=== PATIENT | female | born 1965 | race Caucasian/White ===

== ENCOUNTER 2017-07-31 03:42 | Inpatient (IN) | payer MEDICAID ==
[~2017-07-31] VITALS: Ht 152.4 cm; Wt 76.4 kg
[~2017-07-31 03:42] MED LIST: ADVAIR 250/501 DISK INH; ALBUTEROL0.63 MG/3 INH; ASPIRIN EC81 M1 PO; BUSPAR10 MG PO; CALCIUM 250+D T1 TAB PO; FISH OIL 500 MG1 CAP PO; FLUTICASONE PRO16 GM NASAL; GLUCOPHAGE1000 MG PO; HUMULIN R100 U/ML SC; HYDROCODON-ACE1 EAC6 PO; KLONOPIN1 MG PO; LANOXIN250 MCG PO; LANTUS INSULIN10 ML SC; LATUDA40 MG PO; MESTINON60 MG PO; NEURONTIN 300300 MG PO; NITROSTAT0.4 MG SL; PRAVASTATIN SOD10 MG PO; PRINIVIL20 MG PO; SINEQUAN100 MG PO; SINGULAIR10 MG PO; SUMATRIPTAN SUC25 MG PO; TOPICORT TOPICAL; ULTRAM50 MG PO; VITAMIN E1000 UNI1 PO; WELLBUTRIN75 MG PO
[2017-07-31 04:29] LABS: BASOPHILS 0.3 % (0-2); EOSINOPHILS 6.9 % (0-7); HEMATOCRIT 31.7 % (36.0-48.0); HEMOGLOBIN 10.6 g/dL (12-16); IMMATURE GRANULOCYTES 0.2 % (0-5); LYMPHOCYTES 21.8 % (15-50); MCH 30.9 pg (26.0-34.0); MCHC 33.4 g/dL (31.0-37.0); MCV 92.4 fL (80.0-100.0); MEAN PLATELET VOLUME 9.2 fL (7.4-10.4); MONOCYTES 7.2 % (2-11); NEUTROPHILS 63.6 % (40-80); PLATELET COUNT 270 10x3/uL (130-400); RBC 3.43 10x6/uL (4.00-5.40); RDW 12.5 % (11.5-14.5); WBC 8.9 10x3/uL (4.8-10.8)
[2017-07-31 04:45] LABS: ALBUMIN 3.7 g/dL (3.4-5.0); BILIRUBIN - TOTAL 0.32 mg/dL (0.2-1.3); CALCIUM 9.7 mg/dL (8.5-10.1); CARBON DIOXIDE 21.6 mmol/L (21.0-32.0); CREATININE - SERUM 11.7 mg/dL (0.6-1.3); POTASSIUM - SERUM 4.6 mmol/L (3.5-5.1); PROTEIN - SERUM 7.5 g/dL (6.4-8.2)
--- NOTE | 2017-07-31 07:24 | NUR ---
Pt arrived via bed from ER after receiving report. Physical assessment by admission discharge rn nurse. Meds reviewed with pt and pts spouse, updated. Pt has had no home meds today. Pt has 20g peripheral IV to rt wrist, saline locked currently. Pt started vomiting during med reconciliation. NO c/o pain currently. ID band on left wrist.
--- NOTE | 2017-07-31 07:30 | NUR ---
Complete bed bath and linen change performed. Pt has pink, blanchable area to coccyx, no open areas. Pt is incontinent of bladder, EXECUTIVE VICE PRESIDENT AND CHIEF OPERATING OFFICER will provide briefs from supply. Call light in reach. Pt states had no nausea before emesis, states "I just started throwing up". Emesis thin, white to pinkish brown. Approx amt 400ml.
--- NOTE | 2017-07-31 08:42 | NUR ---
Pt moved to 2121 per community recreation coordinator. Report given to that RN.
[2017-07-31 11:09] LABS: BASOPHILS 0.2 % (0-2); EOSINOPHILS 1.1 % (0-7); HEMATOCRIT 30.3 % (36.0-48.0); HEMOGLOBIN 10.3 g/dL (12-16); IMMATURE GRANULOCYTES 0.2 % (0-5); LYMPHOCYTES 9.1 % (15-50); MCH 31.3 pg (26.0-34.0); MCV 92.1 fL (80.0-100.0); MEAN PLATELET VOLUME 9.4 fL (7.4-10.4); MONOCYTES 0.9 % (2-11); NEUTROPHILS 88.5 % (40-80); RBC 3.29 10x6/uL (4.00-5.40); RDW 12.4 % (11.5-14.5)
[2017-07-31 11:12] LABS: COMPLEMENT C4 25.8 mg/dL (17.4-52.2)
[2017-07-31 11:20] LABS: PLATELET COUNT 196 10x3/uL (130-400); WBC 5.4 10x3/uL (4.8-10.8)
[2017-07-31 11:33] LABS: ALBUMIN 3.7 g/dL (3.4-5.0); ANION GAP 26.6 mmol/L (8-16); BILIRUBIN - TOTAL 0.32 mg/dL (0.2-1.3); CALCIUM 9.6 mg/dL (8.5-10.1); CHOL - HDL RATIO 4.5 ratio (2.3-4.1); CREATININE - SERUM 11.1 mg/dL (0.6-1.3); LDL-HDL RATIO 1.7 ratio (1.5-3.5); MAGNESIUM - SERUM 1.5 mg/dL (1.8-2.4); PHOSPHOROUS 5.6 mg/dL (2.5-4.9); PROTEIN - SERUM 7.5 g/dL (6.4-8.2)
[2017-07-31 11:34] LABS: POTASSIUM - SERUM 5.6 mmol/L (3.5-5.1)
[2017-07-31 14:00] VITALS: BP 138/72; Ht 152.4 cm; Wt 76.4 kg
--- NOTE | 2017-07-31 15:00 | NUR ---
ALERT AND ORIENTED X4. RESTING IN BED. MAZARIEGOS PLACED. URINE CLOUDY YELLOW. UA TAKEN TO LAB ORDERED. REFUSE SCDs. UP TO BATHROOM WITH ASSISTANCE. FAMILY AT BEDSIDE. DENIES ANY NEEDS. SINUS RHTHYM ON TELEMETRY. 10mL OF SALINE INFLATED IN BALLOON. CONTINUE PLAN OF CARE. BED LOCKED AND LOW. CALL LIGHT IN REACH. TWO SIDERAILS UP.
[2017-07-31 19:13] LABS: APPEARANCE CLEAR (CLEAR); BILIRUBIN NEGATIVE (NEGATIVE); COLOR YELLOW (YELLOW); GLUCOSE 50 mg/dL (NEGATIVE); KETONE NEGATIVE (NEGATIVE); LEUKOCYTE ESTERASE NEGATIVE (NEGATIVE); NITRITE NEGATIVE (NEGATIVE); PROTEIN NEGATIVE (NEGATIVE); UROBILINOGEN NORMAL (NORMAL)
--- NOTE | 2017-07-31 19:44 | NUR ---
ASSESSMENT COMPLETE, A&O. IV TO RIGHT HAND WITH NS INFUSING AT 100 CC/HR. SITE CLEAN AND DRY. MAZARIEGOS DRAINING TO GRAVITY. AT BED SIDE, PT DENIES PAIN AT THIS TIME, SHERBERT GIVEN AT PT REQUEST.
[2017-07-31 20:00] VITALS: BP 139/86
--- NOTE | 2017-07-31 20:00 | NUR ---
VITALS OBTAINED BY NURSE, VITALS SIGNS STABLE.
--- NOTE | 2017-07-31 20:57 | NUR ---
HS MEDS GIVEN WITH FRESH ICE WATER, PT DENIES PAIN OR NEEDS, BED LOW, CL IN REACH.
--- NOTE | 2017-07-31 21:49 | NUR ---
VITALS OBTAIN BY NURSE, VITAL SIGNS STABLE.
--- NOTE | 2017-07-31 21:57 | NUR ---
BED SIDE COMMODE TAKEN TO ROOM FOR PTS CONVIENCE.
[2017-08-01] VITALS: BP 106/55
--- NOTE | 2017-08-01 00:19 | NUR ---
DAIRY POWDER MIXER OPERATOR AT BEDSIDE TO OBTAIN VITALS, CALL LIGHT IN REACH. WILL CONTINUE TO MONITOR.
--- NOTE | 2017-08-01 03:23 | NUR ---
RESTING WITH EYES CLOSED, RESPERATIONS EVEN, NO S/S DISTRESS NOTED.
[2017-08-01 04:00] VITALS: BP 144/62
[2017-08-01 06:16] LABS: BASOPHILS 0 % (0-2); EOSINOPHILS 0.2 % (0-7); IMMATURE GRANULOCYTES 0.2 % (0-5); LYMPHOCYTES 11.7 % (15-50); MCH 30.9 pg (26.0-34.0); MCHC 34.8 g/dL (31.0-37.0); MEAN PLATELET VOLUME 9.4 fL (7.4-10.4); MONOCYTES 7.7 % (2-11); NEUTROPHILS 80.2 % (40-80); PLATELET COUNT 164 10x3/uL (130-400); WBC 5.3 10x3/uL (4.8-10.8)
[2017-08-01 06:17] LABS: HEMATOCRIT 23.3 % (36.0-48.0); HEMOGLOBIN 8.1 g/dL (12-16); MCV 88.9 fL (80.0-100.0); RBC 2.62 10x6/uL (4.00-5.40)
[2017-08-01 06:34] LABS: ALBUMIN 3.1 g/dL (3.4-5.0); BILIRUBIN - TOTAL 0.23 mg/dL (0.2-1.3); CALCIUM 7.8 mg/dL (8.5-10.1); PROTEIN - SERUM 6.3 g/dL (6.4-8.2)
[2017-08-01 06:35] LABS: ANION GAP 16.1 mmol/L (8-16); CARBON DIOXIDE 24.8 mmol/L (21.0-32.0); POTASSIUM - SERUM 3.9 mmol/L (3.5-5.1)
--- NOTE | 2017-08-01 07:15 | NUR ---
RESTING QUIETLY RESP UNLABORED NAD NOTED
--- NOTE | 2017-08-01 07:30 | NUR ---
ASSESSMENT COMPLETED.SLOW TO AWAKEN. AFTER PT WOKE UP, SHE IS ALERT, TELEMERTY SHOWS SR 69. O2 AT 5L/M PER NC IV RIGHT HAND WITH NS AT 100. KARY PLACED UNDER PT. MAZARIEGOS CATH PATENT TO BEDSIDE DRAINAGE. SR UP WITH CALL LIGHT IN REACH. WILL MONITOR
[2017-08-01 07:47] VITALS: BP 108/67
[2017-08-01 11:18] LABS: ANA REFLEX - DBL STRANDED DNA <1 IU/mL (0-9); ANA REFLEX - DIRECT Negative (Negative)
[2017-08-01 11:42] VITALS: BP 116/56
[2017-08-01 12:11] LABS: COMPLEMENT C4 21.2 mg/dL (17.4-52.2)
[2017-08-01 13:22] LABS: ERYTHROCYTE SEDIMENTATION RATE 32 mm/hr (0-30)
[2017-08-01 15:15] VITALS: BP 108/55
--- NOTE | 2017-08-01 17:50 | NUR ---
STARTED SECOND UNIT OF PRBC. VS ARE WNL PT DENIES ANY S/S TRANSFUSION REACTION. PRBC INFUSING TO R HAND NO PROBLEMS.
--- NOTE | 2017-08-01 17:56 | NUR ---
SECOND UNIT OF BLOOD HUNG BY ABRAN CASTORENA RN. 1ST UNIT OF BLEED GIVEN WITH ANY ADVERSE SYMPTOMS.DENIES ANY NEEDS. CALL LIGHT IN REACH
[2017-08-01 20:55] VITALS: BP 121/50
[2017-08-02 04:00] VITALS: BP 115/60
[2017-08-02 05:28] LABS: BASOPHILS 0.2 % (0-2); EOSINOPHILS 1.1 % (0-7); IMMATURE GRANULOCYTES 0.2 % (0-5); LYMPHOCYTES 16.5 % (15-50); MCH 30.4 pg (26.0-34.0); MCHC 34.3 g/dL (31.0-37.0); MCV 88.7 fL (80.0-100.0); MEAN PLATELET VOLUME 9.7 fL (7.4-10.4); MONOCYTES 6.8 % (2-11); NEUTROPHILS 75.2 % (40-80); PLATELET COUNT 156 10x3/uL (130-400); RDW 13.1 % (11.5-14.5); WBC 6.3 10x3/uL (4.8-10.8)
[2017-08-02 05:45] LABS: HEMATOCRIT 30.6 % (36.0-48.0); HEMOGLOBIN 10.5 g/dL (12-16); RBC 3.45 10x6/uL (4.00-5.40)
[2017-08-02 05:50] LABS: ALBUMIN 3.2 g/dL (3.4-5.0); CALCIUM 7.7 mg/dL (8.5-10.1); CARBON DIOXIDE 25.6 mmol/L (21.0-32.0)
[2017-08-02 05:54] LABS: ANION GAP 13.4 mmol/L (8-16); CREATININE - SERUM 5.7 mg/dL (0.6-1.3)
[2017-08-02 06:29] LABS: BILIRUBIN - TOTAL 0.29 mg/dL (0.2-1.3); PROTEIN - SERUM 6.3 g/dL (6.4-8.2)
--- NOTE | 2017-08-02 07:25 | NUR ---
A SSESSMENT COMPLETED. ALERT AND ORIENTED. TELEMERTY SHOWS SR. O2 AT 2 L/M PRN. MAZARIEGOS CATH PATEN TO GRAVITY BAG. FAMILY AT BEDSIDE. DENIES ANY NEEDS
[2017-08-02 08:57] VITALS: BP 123/59
[2017-08-02 09:16] LABS: ANA REFLEX - DIRECT Negative (Negative)
[2017-08-02 11:17] LABS: SPE - A/G RATIO 1.3 (0.7-1.7); SPE - ALBUMIN 3.9 g/dL (2.9-4.4); SPE - ALPHA-1 GLOBULIN 0.2 g/dL (0.0-0.4); SPE - GAMMA GLOBULIN 0.9 g/dL (0.4-1.8); SPE - M-SPIKE Not Observed g/dL (Not Observed)
[2017-08-02 12:12] VITALS: BP 113/60
--- NOTE | 2017-08-02 12:59 | NUR ---
RD follow up note, Chart reviewed, visited with pt Pt reports good appetite. No n/v/c/d/chewing/swallowing problems. Physician noted on 08/02 "hyponatremia will liberilize diet". Meds: reviewed Diet: previously renal ADA, now ADA PO: 50-75% Labs: 08/02- BUN 71 Trending down, creat: 5.7, trending down. NA 08/02-143, 08/01-138, 07/31-135 08/02-K 3.0, 07/31-5.6 WTL 08/02-192 bed scale, 07/3168-753-pdalhsiw. No skin issues. Good appetite, fair intake, diet recently changed. Labs improving. No changes at this time. Plan: RD to continue to follow
--- NOTE | 2017-08-02 17:50 | NUR ---
UP TO BEDSIDE CHAIR. DENIES ANY NEEDS.
[2017-08-02 19:00] VITALS: BP 123/65
[2017-08-03] VITALS: BP 119/84
[2017-08-03 04:00] VITALS: BP 131/72
--- NOTE | 2017-08-03 05:15 | NUR ---
RESTING WELL THIS SHIFT WITHOUT C/O OR DISTRESS NOTED. NO NEEDS VOICED. RESP EVEN AND UNLABORED. CALL LIGHT WITHIN REACH. WILL CONT TO MONITOR.
[2017-08-03 05:23] LABS: BASOPHILS 0.2 % (0-2); EOSINOPHILS 2.2 % (0-7); HEMATOCRIT 30.5 % (36.0-48.0); HEMOGLOBIN 10.4 g/dL (12-16); IMMATURE GRANULOCYTES 0.2 % (0-5); LYMPHOCYTES 18.1 % (15-50); MCH 30.2 pg (26.0-34.0); MCHC 34.1 g/dL (31.0-37.0); MCV 88.7 fL (80.0-100.0); MEAN PLATELET VOLUME 10.1 fL (7.4-10.4); MONOCYTES 9.4 % (2-11); NEUTROPHILS 69.9 % (40-80); PLATELET COUNT 164 10x3/uL (130-400); RBC 3.44 10x6/uL (4.00-5.40); RDW 13.1 % (11.5-14.5); WBC 6.4 10x3/uL (4.8-10.8)
[2017-08-03 05:52] LABS: ALBUMIN 3.2 g/dL (3.4-5.0); BILIRUBIN - TOTAL 0.34 mg/dL (0.2-1.3); CALCIUM 7.7 mg/dL (8.5-10.1); CARBON DIOXIDE 25.8 mmol/L (21.0-32.0); PROTEIN - SERUM 6.4 g/dL (6.4-8.2)
[2017-08-03 06:00] LABS: CREATININE - SERUM 3.6 mg/dL (0.6-1.3)
[2017-08-03 06:01] LABS: POTASSIUM - SERUM 2.8 mmol/L (3.5-5.1)
--- NOTE | 2017-08-03 06:23 | NUR ---
PT K+ RESULTS CRITICALLY LOW. PT ON ELECTROLYTE PROTOCOL. KCL 20 MEQ PO GIVEN. PT TO RECEIVE 2 MORE DOSES Q2H. WILL REPORT TO ONCOMING NURSE. URINE COLLECTED AND SENT TO LAB AT THIS TIME.
[2017-08-03 06:40] LABS: APPEARANCE CLOUDY (CLEAR); BILIRUBIN NEGATIVE (NEGATIVE); COLOR STRAW (YELLOW); GLUCOSE 250 mg/dL (NEGATIVE); KETONE NEGATIVE (NEGATIVE); LEUKOCYTE ESTERASE 1+ (NEGATIVE); NITRITE POSITIVE (NEGATIVE); PROTEIN TRACE mg/dL (NEGATIVE); UROBILINOGEN NORMAL (NORMAL)
[2017-08-03 06:41] LABS: BACTERIA MANY /hpf (NONE SEEN); MUCUS <1+ /lpf (NONE SEEN); WHITE CELLS - URINE >50 /hpf (0-5)
[2017-08-03 06:51] LABS: CREATININE - URINE 72.9 mg/dL (30-125); PRO/CRE RATIO URINE 0.5 mg/g; PROTEIN - URINE 35.2 mg/dL (0.0-11.9)
--- NOTE | 2017-08-03 07:12 | NUR ---
AM ROUNDS- PT IN BED, WITH EYES CLOSED, RESP AND UNLABORED. RT WRIST IV SL AND PATENT. BED LOW AND WHEELS LOCKED, BEDSIDE RAILS X2, CALL LIGHT IN REACH, NAD NOTED, WILL CONTINUE TO MONITOR.
[2017-08-03 09:48] VITALS: BP 134/75
--- NOTE | 2017-08-03 09:58 | NUR ---
AM MEDS GIVEN AT THIS TIME PT CONCERN ABOUT IV. IV SITE ASSESSED, IV SITE LOOKS GOOD AND IS PATENT. PT REFUSED TO BE HOOKED UP TO IV FLUIDS AT THIS TIME. JUST FINISHED WITH SPONGE BATH, DENIES ANY NEEDS AT THIS TIME. AT BEDSIDE, NAD NOTED, WILL CONTINUE TO MONITOR.
--- NOTE | 2017-08-03 10:04 | NUR ---
PAULY ROJO RENAL MANAGER UTILIZATION REVIEW NOTIFIED THAT PT IS REFUSING TO HAVE IV FLUIDS RUNNING. PAULY ROJO STATED THAT IT WAS OK SINCE PT IS GETTING BETTER.
--- NOTE | 2017-08-03 11:29 | NUR ---
MAZARIEGOS CATHETER D/C AT THIS TIME, PER ORDER. REMOVED 10CC OF SALINE OUT OF BALLOON, TIP INTACT. PT TOLERATED PROCEDURE WELL. PRODUCTION SCHEDULER AT BEDSIDE TO DO VITAL SIGNS. PT DENIES ANY NEEDS AT THIS TIME. AT BEDSIDE, NAD NOTED, WILL CONTNUE TO MONITOR.
[2017-08-03 12:29] VITALS: BP 123/80
[2017-08-03 15:11] VITALS: BP 125/64
--- NOTE | 2017-08-03 16:49 | NUR ---
PT UP TO SIDE OF BED, FIXING TO EAT DINNER. DENIES ANY NEEDS AT THIS TIME. CALL LIGHT IN REACH, NAD NOTED, WILL CONTINUE TO MONITOR.
[2017-08-03 20:00] VITALS: BP 135/81
[2017-08-04] VITALS: BP 142/72
[2017-08-04 04:00] VITALS: BP 150/77
[2017-08-04 05:53] LABS: BASOPHILS 0.4 % (0-2); HEMATOCRIT 29.5 % (36.0-48.0); IMMATURE GRANULOCYTES 0.4 % (0-5); LYMPHOCYTES 25.1 % (15-50); MCH 30.4 pg (26.0-34.0); MCHC 33.9 g/dL (31.0-37.0); MCV 89.7 fL (80.0-100.0); MEAN PLATELET VOLUME 10.4 fL (7.4-10.4); MONOCYTES 8.1 % (2-11); PLATELET COUNT 152 10x3/uL (130-400); RBC 3.29 10x6/uL (4.00-5.40); WBC 5.3 10x3/uL (4.8-10.8)
[2017-08-04 06:21] LABS: ALBUMIN 3.3 g/dL (3.4-5.0); ANION GAP 12.4 mmol/L (8-16); BILIRUBIN - TOTAL 0.4 mg/dL (0.2-1.3); CALCIUM 8.2 mg/dL (8.5-10.1); CREATININE - SERUM 2.4 mg/dL (0.6-1.3); POTASSIUM - SERUM 3.4 mmol/L (3.5-5.1); PROTEIN - SERUM 6.4 g/dL (6.4-8.2)
--- NOTE | 2017-08-04 07:23 | NUR ---
AM ROUNDS- PT IN BED, WATCHING TV. RESP EVEN AND NONLABORED. RT WRIST IV INFUSING NS AT 100. BED LOW AND WHEELS LOCKED, BEDSIDE RAILS X2, PT DENIES ANY NEEDS AT THIS TIME. CALL LIGHT IN REACH, NAD NOTED, WILL CONTINUE TO MONITOR.
[2017-08-04 08:00] VITALS: BP 140/78
--- NOTE | 2017-08-04 08:49 | NUR ---
ADMINSTERED AM MEDS. PT UP TO SIDE OF BED, DENIES ANY NEEDS AT THIS TIME. CALL LIGHT IN REACH, NAD NOTED, WILL CONTINUE TO MONITOR.
--- NOTE | 2017-08-04 10:30 | NUR ---
PT GOT IN THE SHOWER AFTER THROWING UP IN HER BED. COMPLETE LINEN CHANGE DONE AT THIS TIME. AT BEDSIDE. PT WILL NOTIFY NURSE OR CUSTOMER SERVICE REP WHEN SHE IS OUT OF SHOWER TO BE HOOKED BACK UP TO TELEMETRY. NAD NOTED, WILL CONTINUE TO MONITOR.
--- NOTE | 2017-08-04 11:00 | NUR ---
40MEQ OF K GIVEN AT THIS TIME FOR LOW K OF 3.4. PT DENIES ANY NEEDS AT THIS TIME. CALL LIGHT IN REACH, NAD NOTED, WILL CONTINUE TO MONITOR.
[2017-08-04 12:00] VITALS: BP 128/69
[2017-08-04 16:00] VITALS: BP 137/69
[2017-08-04 19:00] VITALS: BP 150/76
--- NOTE | 2017-08-04 22:03 | NUR ---
INIITAL ROUNDS COMPLETED AT 1915 HRS. PT DENIED ANY DISCOMFORT. PT REFUSED IV FLUIDS AT THAT TIME. ASSESSMENT COMPLETED AT 2009 HRS. VSS . SR PER CM HR 79. IV TO R WRIST SL. LUNGS CTA. PT ALER AND ORIENTED TO PERSON, PLACE AND TIME. PM MED GIVEN. PT CURRENTLY WATCHING TV. WILL CONTINUE TO MONITOR.
--- NOTE | 2017-08-04 22:48 | NUR ---
PT VERY UPSET THREATENING TO LEAVE AMA. CRISTÓBAL SOME WOMAN CAME IN AND PUT HER HAD DOWN HER GOWN TO PLACE MONITOR BACK ON. INFORMED FROM Karen MAYEN RN THAT PT WAS READING ASYSTOLE ON MONITOR AND SHE CHECKED ON PT. PT STATED SHE CALLED HER . PT INSISTING SHE IS LEAVING IN AM. NO OFFICIAL ORDERS. WILL CONTINUE TO MONITOR.
--- NOTE | 2017-08-04 23:10 | NUR ---
HERE. SITUATION EXPLAINED TO . EMOTIONAL SUPPORT GIVEN. DISCUSSED MD NOTED TO PT AND SPOUSE. PT AGREED TO STAY UNTIL AM. WILL CONTINUE TO MONITOR.
--- NOTE | 2017-08-05 00:46 | NUR ---
PT RSTING WITH EYES CLOSED. RESP EVEN AND REGULAR. SR UP X2,CALL LIGHT WITHIN REACH.
[2017-08-05 01:06] VITALS: BP 142/73
--- NOTE | 2017-08-05 02:45 | NUR ---
PT RESTING WITH EYES CLOSED. RESP EVEN AND REGULAR. SR UP X2, CALL LIGHT WITHIN RAECH.
[2017-08-05 04:27] VITALS: BP 173/101
--- NOTE | 2017-08-05 04:51 | NUR ---
PT CONTINUES TO BE UPSET THAT SHE HAS NOT BEEN DC'S HOME ALREADY. SPOUSE AT BEDSIDE.
[2017-08-05 05:45] LABS: BASOPHILS 0.3 % (0-2); EOSINOPHILS 5.1 % (0-7); HEMATOCRIT 30.4 % (36.0-48.0); HEMOGLOBIN 10.3 g/dL (12-16); IMMATURE GRANULOCYTES 0.2 % (0-5); LYMPHOCYTES 18.3 % (15-50); MCH 30.5 pg (26.0-34.0); MCHC 33.9 g/dL (31.0-37.0); MCV 89.9 fL (80.0-100.0); MEAN PLATELET VOLUME 10.2 fL (7.4-10.4); MONOCYTES 8.7 % (2-11); NEUTROPHILS 67.4 % (40-80); PLATELET COUNT 166 10x3/uL (130-400); RBC 3.38 10x6/uL (4.00-5.40); WBC 6.1 10x3/uL (4.8-10.8)
[2017-08-05 05:57] LABS: ALBUMIN 3.6 g/dL (3.4-5.0); ANION GAP 13.4 mmol/L (8-16); BILIRUBIN - TOTAL 0.4 mg/dL (0.2-1.3); CALCIUM 8.2 mg/dL (8.5-10.1); CARBON DIOXIDE 23.9 mmol/L (21.0-32.0); CREATININE - SERUM 2.2 mg/dL (0.6-1.3); POTASSIUM - SERUM 3.3 mmol/L (3.5-5.1); PROTEIN - SERUM 6.7 g/dL (6.4-8.2)
--- NOTE | 2017-08-05 06:03 | NUR ---
VSS THROUGHOUT NIGHT. SR PER CM. PT DENIED ANY DISCOMFORT. AM K+ 3.3. WILL TREAT PER PROTOCOL. NEEDS MET; WILL CONTINUE TO MONITOR.
--- NOTE | 2017-08-05 06:27 | NUR ---
PT REFUSED POTASSIUM SUPPLEMENT.
--- NOTE | 2017-08-05 07:30 | NUR ---
ASSESSMENT COMPLETED. TELEMERTY OFF, PT REFUSES TO WEAR. RIGHT WRIST SL. UP AT KHARI. LUNGS CLEAR. DENIES ANY NEEDS. SR UP WITH CALL LIGHT IN REACH. FAMILY AT BEDSIDE
[2017-08-05 09:09] VITALS: BP 173/71
[2017-08-05 10:11] LABS: UPE RAND - ALBUMIN 27.8 % (()); UPE RAND - ALPHA 1 GLOBULIN 1.7 % (()); UPE RAND - ALPHA 2 GLOBULIN 20.3 % (()); UPE RAND - BETA GLOBULIN 26.3 % (()); UPE RAND - GAMMA GLOBULIN 23.9 % (())
[2017-08-05 10:11] LABS: ANTI-GLOMERULAR BASMENT MEMBRN 3 units (0-20)
[2017-08-05 12:48] VITALS: BP 154/75
[2017-08-05] MEDS ORDERED: Levaquin PO (13:29)
[2017-08-05] MEDS ORDERED: FLORAJEN3 CAPS460 MG PO (13:29)
[2017-08-05] MEDS ORDERED: NORVASC5 MG PO (15:09)
--- NOTE | 2017-08-05 16:06 | NUR ---
NEW DISCHARGE MEDICATION CALLED TO [facility]. SPOKE WITH CARLYN/PHARMACIST. PRINTED PRESCRIPTIONS WERE NOT ALL SIGNED
[2017-08-05 16:13] LABS: ANCA - ANTIMYELOPEROXIDASE <9.0 U/mL (0.0-9.0); ANCA - ANTIPROTEINASE 3 <3.5 U/mL (0.0-3.5); ANCA - ATYPICAL <1:20 titer (Neg:<1:20); ANCA - CYTOPLASMIC <1:20 titer (Neg:<1:20); ANCA - PERINUCLEAR <1:20 titer (Neg:<1:20)
--- NOTE | 2017-08-05 16:41 | NUR ---
PT DISCHARGED. IV DCD WITH TIP INTACT. TO PRIVATE CAR PER WHEELCHAIR
--- NOTE | 2017-08-05 17:47 | NUR ---
Patient Name: AZALEA IVERSON Admission Status: ER Accout number: [id number] Admission Date: 07-31-2017 : 1965 Admission Diagnosis: Attending: VIRGIE DIAMOND Current LOS: 5 Anticipated DC Date: 08-05-2017 Planned Disposition: Home Primary Insurance: MEDICAID [place] Discharge Planning Comments: * Is the patient Alert and Oriented? Yes 0 * How many steps to enter\exit or inside your home? RAMP 0 * PCP SHAHAB SUGGS 0 * Pharmacy [facility] 0 * Preadmission Environment Home with Family 0 * ADLs Independent 0 * Equipment Hospital Bed Nebulizer Oxygen Rolling Walker Shower Chair Wheelchair 0 * Other Equipment OXYGEN AT NIGHT ONLY [employer], MEDICAL EQUIPMENT PROVIDER 0 * List name and contact numbers for known caregivers / representatives who currently or will assist patient after discharge: KELLEN IVERSON, SPOUSE, 0 * Community resources currently utilized None 0 * Please name any agencies selected above. NONE 0 * Additional services required to return to the preadmission environment? No 0 * Can the patient safely return to the preadmission environment? Yes 0 * Has this patient been hospitalized within the prior 30 days at any hospital? No 0 CM MET WITH PT IN ROOM TO DISCUSS DISCHARGE PLANNING AND NEEDS. PT REPORTS LIVING AT HOME INDEPENDENTLY WITH SPOUSE. PT REPORTS HAVING ALL NEEDED MEDICAL EQUIPMENT FROM [employer] AND NO OUTSIDE SERVICES ASSISTING IN THE HOME. CM DISCUSSED AVAILABILITY OF HOME HEALTH, REHAB SERVICES AND MEDICAL EQUIPMENT. PT DENIES DISCHARGE NEEDS, REPORTS HER FRIEND WILL PICK HER UP FOR DISCHARGE HOME TODAY. Quality Systems Engineer: Ayad Cooley
== END 2017-08-05 18:26 | disposition home or self-care (01) | DRG 683 ==
LOC: D.ER 03:42 → D.M2 06:56
PROVIDERS: Emergency Medicine; Internal Medicine Nephrology; ADMIT Family Medicine Adult Medicine
PROC: 0T9B70Z Drainage of Bladder with Drainage Device, Via Natural or Artificial Opening (ICD-10-PCS; principal; 2017-07-31)
DX: N17.9 Acute kidney failure, unspecified (principal); N39.0 Urinary tract infection, site not specified; E87.5 Hyperkalemia; E86.0 Dehydration; R41.82 Altered mental status, unspecified; I95.9 Hypotension, unspecified; D64.9 Anemia, unspecified; B96.20 Unspecified Escherichia coli [E. coli] as the cause of diseases classified elsewhere; Z86.73 Personal history of transient ischemic attack (TIA), and cerebral infarction without residual deficits; E11.65 Type 2 diabetes mellitus with hyperglycemia; E11.40 Type 2 diabetes mellitus with diabetic neuropathy, unspecified; F41.9 Anxiety disorder, unspecified; I10 Essential (primary) hypertension; F31.9 Bipolar disorder, unspecified; Z91.81 History of falling; E87.6 Hypokalemia; G35 Multiple sclerosis; I25.10 Atherosclerotic heart disease of native coronary artery without angina pectoris